=== PATIENT | female | born 1975 | race Caucasian/White ===

== ENCOUNTER → 2020-07-13 | Outpatient (CLI) | payer BC, OTHER ==
[~2020-07-13] MED LIST: BUSPAR 5MG TABLE5 MG PO; FLUOXETINE HCL40 MG PO; NOVOLOG PUMP; PANTOPRAZOLE SO40 MG PO; SUCRALFATE1 GM PO; VIT D3 PO
== END | disposition home or self-care (01) ==
LOC: CATH 09:40
DX: R55 Syncope and collapse (principal); R42 Dizziness and giddiness; I49.8 Other specified cardiac arrhythmias; G90.1 Familial dysautonomia [Riley-Day]